=== PATIENT | female | born 1995 | race African-American/Black ===

== ENCOUNTER 2016-11-26 04:27 | Emergency (ER) | payer OTHER ==
[~2016-11-26] VITALS: Ht 160 cm; Wt 57.1 kg
== END 2016-11-26 05:36 | disposition home or self-care (01) ==
LOC: SED 04:27
DX: O26.893 Other specified pregnancy related conditions, third trimester (principal); Z3A.34 34 weeks gestation of pregnancy
CPT/HCPCS: 99284